=== PATIENT | female | born 1935 | race Caucasian/White ===

== ENCOUNTER 2016-05-09 11:17 | Inpatient (IN) ==
--- NOTE | 2016-05-09 11:52 | Emergency Department Note ---
Disposition Clinical Impression: Rectal bleeding Anemia Qualifiers: Anemia type: unspecified type Qualified Code(s): D64.9 - Anemia, unspecified Disposition: Admitted As Inpatient Condition: Fair Referrals: NO,PCP [Primary Care Provider] - Forms: ED Satisfaction Letter Time of Disposition: 13:38 Recheck wound or abnormal lab - General Chief Complaint: ED Recheck/Abnormal Lab/Rx Stated Complaint: Hbg 6.6 Time Seen by Provider: 05/09/16 11:26 Source: EMS Limitations: no limitations Nursing Notes Reviewed: Yes Vital Signs Reviewed: Yes - History of Present Illness HPI Narrative: 81-year-old who comes in complaining of low hemoglobin. Patient has a history of rectal bleeding. Patient was seen by the doctor at the [facility] and requested patient received 2 units of packed red cells. Patient states she is a DNR but would be evaluated for the rectal bleeding. Patient denies being on a blood thinner. Pt Subjective Complaint: abnormal lab(s) (Global 6.6) Symptoms Since Prior Visit: no new symptoms Context: called for abnormal lab result Associated symptoms: none - Related Data Allergies Allergy/AdvReac Type Severity Reaction Status Date / Time amlodipine Allergy Hives Verified 05/09/16 11:45 Constitutional: Denies: fever, chills, weakness, weight change Eyes: Denies: eye pain, eye discharge, vision change ENT ED: Denies: ear pain, throat pain, dental pain, hearing loss, epistaxis, congestion, dysphagia Cardiovascular: Denies: chest pain, palpitations, dyspnea on exertion, edema, syncope Respiratory: Denies: cough, dyspnea, wheezes, hemoptysis, stridor Gastrointestinal: Denies: abdominal pain, nausea, vomiting, diarrhea, constipation, hematemesis, melena, hematochezia Genitourinary: Denies: dysuria, frequency, hematuria, discharge Musculoskeletal: Denies: back pain, neck pain, arthralgia, myalgia Integumentary: Denies: rash, abrasion, lesions Neurological: Denies: headache, weakness, numbness, paresthesias, confusion, abnormal gait, vertigo Psychiatric: Denies: anxiety, depression, suicidal thoughts, homicidal thoughts , auditory hallucinations, visual hallucinations Endocrine: Denies: fatigue Hematological/Lymphatic: Denies: easy bleeding, easy bruising Allergic/Immunologic: Denies: facial swelling, urticaria Past Medical History - Past Medical History Medical history: Reports: arthritis, dementia, diabetes, GERD, hyperlipidemia, hypertension, peripheral artery disease Psychiatric history: Reports: depression - Social History Smoking Status: Never smoker Smokeless Tobacco Status: No Alcohol use: Reports: none Drug use: Reports: none Physical Exam - General Limitations: no limitations General appearance: alert, in no apparent distress - Head Head exam: atraumatic, normocephalic, normal inspection - Eye Eye exam: Present: normal appearance, PERRL, EOMI - ENT ENT exam: normal exam, normal oropharynx, mucous membranes moist - Neck Neck exam: Present: normal inspection, full ROM, trachea midline - Chest Chest inspection: Present: normal inspection, symmetric chest wall rise - Respiratory Respiratory exam: Present: normal lung sounds bilaterally - Cardiovascular Cardiovascular exam: Present: regular rate, normal rhythm, normal heart sounds - Abdominal Exam Abdominal exam: Present: soft, Non-Tender. Absent: tenderness, distention, guarding, rebound, rigidity - Rectal Exam Agency Trainer present during exam: Yes Rectal exam: Present: heme (+) stool - Extremities Exam Extremities exam: Present: normal inspection, full ROM. Absent: tenderness, pedal edema - Expanded Lower Extremity Exam Neurovascular/Tendon exam: Absent: motor deficit, sensory deficit, tendon deficit Gait: not tested/not observed - Back Exam Back exam: Present: normal inspection, full ROM. Absent: tenderness - Neurological Exam Neurological exam: Present: alert, oriented X3 - Psychiatric Psychiatric exam: Present: normal affect, normal mood - Skin Skin exam: Present: warm, dry, intact, normal color Course - Reevaluation(s) Reevaluation #1: The patient has rectal bleeding and a hemoglobin at the outside facility of 6.6. Hemoglobin here was 7.6 however the patient's creatinine slight elevated which indicates may be some dehydration. Time: 13:47 - Consultations Consultation #1: Discussed with Dr. Zapien, admit. Time: 13:46 Vital Signs Temperature 97.8 F 05/09/16 11:20 Pulse Rate 57 05/09/16 11:20 Respiratory Rate 05/09/16 11:20 Blood Pressure 155/76 05/09/16 11:20 O2 Sat by Pulse Oximetry 97 05/09/16 11:20 Temperature 97.8 F 05/09/16 11:34 Pulse Rate 58 05/09/16 12:52 Respiratory Rate 05/09/16 11:34 Blood Pressure 160/47 05/09/16 12:52 O2 Sat by Pulse Oximetry 96 05/09/16 12:52 Oxygen Delivery Oxygen Delivery Room Air Recheck wound or abnormal lab - Lab Data Result diagrams: 05/09/16 11:56 05/09/16 11:56 Lab Results 05/09/16 05/09/16 05/09/16 Range/Units 11:23 11:56 11:56 WBC 4.3 (4.3-11.1) K/mcL RBC 2.36 L (3.82-4.97) M/mcL Hgb 7.6 L (11.5-15.4) g/dL Hct 24.7 L (35.3-44.9) % MCV 104.7 H (83.0-100.0) fL MCH 32.2 (28.0-33.3) pg MCHC 30.8 L (31.6-35.5) g/dL RDW 15.9 H (11.5-14.5) % Plt Count 173 (140-400) K/mcL MPV 12.2 (9.4-12.4) fL Immature Gran % 4.2 H (0-4) % Seg Neutrophils % 53.3 % Lymphocytes % 28.0 % Monocytes % 10.1 % Eosinophils % 4.2 % Basophils % 0.2 % Neutrophils # 2.3 (1.6-8.9) K/mcL Lymphocytes # 1.2 (0.6-4.6) K/mcL Monocytes # 0.4 (0.0-1.3) K/mcL Eosinophils # 0.2 (0.0-0.6) K/mcL Basophils # 0.0 (0.0-0.2) K/mcL Immature Plt Fraction 11.7 H (1.1-6.1) % Sodium 142 (136-145) mEq/L Potassium 4.7 H (3.5-4.5) mEq/L Chloride 104 (98-109) mEq/L Carbon Dioxide 22 (19-29) mEq/L BUN 33 H (7-20) mg/dL Creatinine 1.73 H (0.57-1.11) mg/dL Est GFR ( Amer) 34 L (> 60) Est GFR (Non-Af Amer) 28 L (> 60) BUN/Creatinine Ratio 19 (6-26) Glucose 154 H (70-99) mg/dL POC Glucose 160 H (58-89) Calculated Osmolality 304 H (280-300) Calcium 9.7 (8.6-10.8) mg/dL Stool Occult Blood (Negative) Blood Type Antibody Screen 05/09/16 05/09/16 Range/Units 11:56 12:25 WBC (4.3-11.1) K/mcL RBC (3.82-4.97) M/mcL Hgb (11.5-15.4) g/dL Hct (35.3-44.9) % MCV (83.0-100.0) fL MCH (28.0-33.3) pg MCHC (31.6-35.5) g/dL RDW (11.5-14.5) % Plt Count (140-400) K/mcL MPV (9.4-12.4) fL Immature Gran % (0-4) % Seg Neutrophils % % Lymphocytes % % Monocytes % % Eosinophils % % Basophils % % Neutrophils # (1.6-8.9) K/mcL Lymphocytes # (0.6-4.6) K/mcL Monocytes # (0.0-1.3) K/mcL Eosinophils # (0.0-0.6) K/mcL Basophils # (0.0-0.2) K/mcL Immature Plt Fraction (1.1-6.1) % Sodium (136-145) mEq/L Potassium (3.5-4.5) mEq/L Chloride (98-109) mEq/L Carbon Dioxide (19-29) mEq/L BUN (7-20) mg/dL Creatinine (0.57-1.11) mg/dL Est GFR ( Amer) (> 60) Est GFR (Non-Af Amer) (> 60) BUN/Creatinine Ratio (6-26) Glucose (70-99) mg/dL POC Glucose (58-89) Calculated Osmolality (280-300) Calcium (8.6-10.8) mg/dL Stool Occult Blood Positive A (Negative) Blood Type A POSITIVE Antibody Screen NEGATIVE - EKG Data EKG attestation: Yes I reviewed and interpreted this EKG. EKG shows normal: sinus rhythm Rate: bradycardia Rhythm: NSR When compared to previous EKG there are: no significant changes (05/05/2014) Interpretation: no acute changes
[2016-05-09 12:05] LABS: Basophils % 0.2 %; Eosinophils # 0.2 K/mcL (0.0-0.6); Eosinophils % 4.2 %; Hematocrit 24.7 % (35.3-44.9); Hemoglobin 7.6 g/dL (11.5-15.4); Immature Granulocytes % 4.2 % (0-4); Immature Platelets 11.7 % (1.1-6.1); Lymphocytes # 1.2 K/mcL (0.6-4.6); Mean Corpuscular HGB Conc 30.8 g/dL (31.6-35.5); Mean Corpuscular Hemoglobin 32.2 pg (28.0-33.3); Mean Corpuscular Volume 104.7 fL (83.0-100.0); Mean Platelet Volume 12.2 fL (9.4-12.4); Monocytes # 0.4 K/mcL (0.0-1.3); Monocytes % 10.1 %; Neutrophils # 2.3 K/mcL (1.6-8.9); Platelet Count 173 K/mcL (140-400); Red Blood Count 2.36 M/mcL (3.82-4.97); Red Cell Distribution Width 15.9 % (11.5-14.5); Segmented Neutrophils % 53.3 %
[2016-05-09 12:16] LABS: Calcium 9.7 mg/dL (8.6-10.8)
[2016-05-09 12:17] LABS: Potassium 4.7 mEq/L (3.5-4.5)
[2016-05-09 14:14] LABS: Prothrombin Time 11.1 Seconds (9.4-12.1)
[2016-05-09 14:16] LABS: Activated Partial Thrombo Time 29.9 Seconds (26.0-36.0)
[2016-05-09] MEDS ORDERED: Naloxone 0.4 MG/ML INJ IVP PRN (16:02)
[2016-05-09] MEDS ORDERED: Acetaminophen 325 MG TABLET PO PRN (16:02)
[2016-05-09] MEDS ORDERED: Ondansetron 4 MG/2 ML VIAL IVP PRN (16:02)
[2016-05-09] MEDS ORDERED: Nitroglycerin 0.4 MG TAB.SUBL SL PRN (16:07)
[2016-05-09] MEDS ORDERED: D5% in Water 1,000 ML IV PRN (16:19)
[2016-05-09] MEDS ORDERED: Dextrose Gel 15 GM PO PRN ×2 (16:19)
[2016-05-09] MEDS ORDERED: *HR* Dextrose 50 % in Water (Syg) 50 ML SYRINGE IVP PRN (16:19)
[2016-05-09] MEDS ORDERED: 0.9 % Sodium Chloride 250 ML ONE (16:40)
--- NOTE | 2016-05-09 16:44 | Electrocardiograph Report ---
[facility] Test Date: 2016-05-09 Pat Name: ADALID Sepulveda Department: 105 Room: 2A13 Gender: F Linen Controller: : [id number] Requested By: Huey Abraham Order Number: [id number] Reading MD: Radha Oro Measurements Intervals Humphrey Rate: 57 P: 0 CA: 203 QRS: -5 QRSD: 98 T: 119 QT: 451 QTc: 446 Interpretive Statements SINUS BRADYCARDIA ST DEVIATION AND MODERATE T-WAVE ABNORMALITY, CONSIDER LATERAL ISCHEMIA Electronically Signed On 05-09-16 16:42:51 EST by Radha Oro
[2016-05-09 16:48] LABS: Calcium 9.1 mg/dL (8.6-10.8); Potassium 4.8 mEq/L (3.5-4.5)
--- NOTE | 2016-05-09 16:53 | Internal Med History&Physical ---
<Hyun Parmar - Last Filed: 05/09/16 16:57> Date of Encounter: 05/09/16 Time of Encounter: 15:30 Assessment and Plan (1) Anemia Current visit: Yes Status: Acute 1 patient's had drop in her hemoglobin 7.6 today-//-9.4. Positive occult stool, not when the blood thinners-testable GI bleed in past had a colonoscopy 2 years ago at outlying facility. Patient's type and screen for 2 units of PRBC -A she is a DNR CC however family and patient request further GI workup 2 consult GI-spoke with -via telephone who will see patient tomorrow will make patient nothing by mouth for EGD in a.m. 3 we will monitor for signs and symptoms of bleeding Qualifiers: Anemia type: unspecified type Qualified Code(s): D64.9 - Anemia, unspecified (2) Atrial fibrillation Current visit: Yes Status: Acute 1 present patient is sinus bradycardia with heart rate 58-55. We will continue with metoprolol and Cardizem will hold for heart rate less than 60 2 we will hold aspirin for now patient to undergo colonoscopy and EGD-we will resume once results obtained Qualifiers: Atrial fibrillation type: paroxysmal Qualified Code(s): I48.0 - Paroxysmal atrial fibrillation (3) Hypertension Current visit: Yes Status: Acute 1 patient's blood pressure was 160 upon admission- we will continue with Cardizem and metoprolol with parameters and reduce clonidine to 0.1 mg and resume after EGD. Administer hydralazine 5 mg IV push as needed for systolic blood pressure greater than 170 Qualifiers: Hypertension type: essential hypertension Qualified Code(s): I10 - Essential (primary) hypertension (4) Diabetes mellitus Current visit: Yes Status: Chronic 1 we will check blood sugars before meals at bedtime with sliding scale insulin goals to maintain postprandial less than 180 Qualifiers: Diabetes mellitus type: type 2 Diabetes mellitus complication status: without complication Diabetes mellitus prison insulin use: without long term care social worker use Qualified Code(s): E11.9 - Type 2 diabetes mellitus without complications (5) DVT prophylaxis Current visit: Yes Status: Acute 1. Due to drop in hemoglobin will use SCDs Internal Medicine - H&P: HPI Chief complaint: low hgb Admitted From: Long-term Nursing Facility Plans for Post Hospital Care: [facility] History of present illness: Ms. Sepulveda is a 81 year old female with a past medical history of atrial fibrillation hypertension diabetes type 2 dementia. Information obtained from medical records staff family members due to patient's history of dementia. According to emergency room records the patient resides at an [facility] and had lab drawn today which revealed hemoglobin was 6.6. Patient did not have any active bleeding at the facility however, she has had an unspecified history of gastritis and possible gastrointestinal hemorrhage in the past with a colonoscopy approximately 2 years ago. She is not on any blood thinners however does take aspirin. Upon arrival to the emergency department her hemoglobin was rechecked at that time it was 7.6. Previous hemoglobin dated was 9.4. The patient had a positive occult stool in the emergency department. She also had MARCE with creatinine 1.73. She was bradycardic on EKG blood pressures 160 systolic afebrile . According to ER records the patient is a DNR CC however her family as well as the patient have agreed to undergo colonoscopy She was typed and crossed for 2 units of PRBCs and admitted for further workup and evaluation. Presently the patient denies any pain or discomfort she is oriented to self only. She does follow simple commands however is unable to recall any history. At present time she is hemodynamically stable. I reviewed the case with Dr Zapien who agree with plan Past Med Surg Social Fam HX - Past Medical History Medical history: arthritis, dementia, diabetes, GERD, hyperlipidemia, hypertension, peripheral artery disease Psychiatric history: depression - Social History Smoking Status: Never smoker Smokeless Tobacco Status: No Alcohol use: none Drug use: none - Family History Mother Hx Family Cardiac Disorders: Yes Internal Medicine - H&P: Meds Acetaminophen [Tylenol] 500 - 1,000 mg PO BID 05/09/16 [History] Aspirin 81 mg PO DAILY 05/09/16 [History] Atorvastatin [Lipitor] 10 mg PO HS 05/09/16 [History] Carbamide Peroxide [Murine Ear Drops] 1 drop BOTH EYES BID 05/09/16 [History] Cholecalciferol (Vitamin D3) [Vitamin D] 1,000 unit PO DAILY 05/09/16 [History] CloNIDine HCl [Clonidine HCl] 0.2 mg PO BID 05/09/16 [History] Diltiazem HCl [Diltiazem ER] 180 mg PO BID 05/09/16 [History] Gabapentin [Neurontin] 100 mg PO BID 05/09/16 [History] Melatonin 6 mg PO HS PRN 05/09/16 [History] Metformin [Glucophage] 500 mg PO BIDWM 05/09/16 [History] Metoprolol [Lopressor] 25 mg PO BID 05/09/16 [History] Nitroglycerin [Nitrostat] 0.4 mg SL Q5M PRN 05/09/16 [History] Omeprazole [PriLOSEC] 20 mg PO DAILY 05/09/16 [History] Ondansetron [Zofran] 8 mg PO Q8HR 05/09/16 [History] Polyethylene Glycol 3350 [MiraLAX] 17 gm PO DAILY PRN 05/09/16 [History] Sertraline [Zoloft] 100 mg PO DAILY 05/09/16 [History] Allergies amlodipine Allergy (Verified 05/09/16 14:37) Hives hives/Racing pulse ROS unobtainable: other (Dementia) All Systems PM: A 10-system review of systems was performed and is negative for pertinent findings except as documented above in the HPI. - Constitutional Vitals: Temp Pulse Resp BP Pulse Ox 97.8 F 56 20 140/63 93 L 05/09/16 11:34 05/09/16 13:46 05/09/16 14:49 05/09/16 14:49 05/09/16 13:46 General appearance: Present: cooperative, A&O X 1, pleasant - Head Head exam: Present: atraumatic, normocephalic - Eye Eye exam: Present: PERRL, conjuntiva pink, sclera anicteric Pupils: Present: PERRL - Neck Neck exam general surgery: Present: supple, trachea midline. Absent: lymphadenopathy - Respiratory Respiratory exam: Present: CTAB. Absent: accessory muscle use, rales, rhonchi, wheezes - Cardiovascular Cardiovascular exam: Present: RRR, +S1, +S2. Absent: diastolic murmur, gallop, rubs, systolic murmur - GI/Abdominal GI/Abdominal exam: Present: normal bowel sounds, soft, no peritoneal signs. Absent: distended, tenderness - Extremities Exam Extremities exam: Present: warm, radial pulses palpable and symetrical. Absent : calf tenderness, cyanotic, pedal edema - Neurological Exam Neurological exam: Present: CN II-XII intact, no focal deficits. Absent: pronater drift, facial droop, speech deficit Additional comments: Oriented to name only - Skin Skin exam: Present: dry, intact, pallor Internal Med - H&P Results - Labs CBC & Chem 7: 05/09/16 11:56 05/09/16 16:26 - EKG Data Rate: bradycardia - EKG Data Prior EKG available for review: yes EKG comments: 05/09/16 16:[address] Zapien <Ale Guzman - Last Filed: 05/09/16 17:59> Date of Encounter: 05/09/16 Internal Medicine - H&P: HPI History of present illness: Ms. Sepulveda is a 81 year old female All Systems PM: A 10-system review of systems was performed and is negative for pertinent findings except as documented above in the HPI. - Constitutional Vitals: Temp Pulse Resp BP Pulse Ox 98.4 F 60 16 184/74 93 L 05/09/16 16:57 05/09/16 16:57 05/09/16 16:57 05/09/16 16:57 05/09/16 16:57 Internal Med - H&P Results - Labs CBC & Chem 7: 05/09/16 11:56 05/09/16 16:26 Labs: BMP 05/09/16 16:26 Sodium 140 Potassium 4.8 H Chloride 106 Carbon Dioxide 22 BUN 32 H Creatinine 1.60 H Glucose 152 H Calcium 9.1 - Attending Attestation I examined this patient and reviewed laboratory, imaging and all diagnostic data. My medical decision-making was reviewed with ÓSCAR Purvis. I agree with the documented findings, disposition and treatment plan as described above. Acute anemia with concern for a possible GI bleed in this 81 year old female. Admit to inpatient due to medical necessity and the expectation about 2 midnight stay.
[2016-05-09] MEDS: Pantoprazole 40 MG VIAL IVP SCH (18:10)
[2016-05-09] MEDS: Insulin LISPRO 300 UNITS/3 ML VIAL SQ SCH ×2 (18:10→20:02)
[2016-05-09] MEDS: Gabapentin 100 MG CAPSULE PO SCH (20:02)
[2016-05-09] MEDS ORDERED: 0.9 % Sodium Chloride 500 ML ONE (20:20)
[2016-05-10] MEDS ORDERED: NIFEdipine XL (24 HR) 60 MG TAB.ER.24 PO ONE (00:23)
[2016-05-10] MEDS ORDERED: 0.9 % Sodium Chloride 1,000 ML ONE (01:22)
[2016-05-10 05:08] LABS: Basophils % 0.4 %; Eosinophils # 0.1 K/mcL (0.0-0.6); Eosinophils % 1.9 %; Hematocrit 32.4 % (35.3-44.9); Immature Granulocytes % 4.1 % (0-4); Lymphocytes # 1.1 K/mcL (0.6-4.6); Lymphocytes % 18.7 %; Mean Corpuscular Hemoglobin 32.1 pg (28.0-33.3); Mean Corpuscular Volume 97.3 fL (83.0-100.0); Mean Platelet Volume 12.8 fL (9.4-12.4); Monocytes # 0.6 K/mcL (0.0-1.3); Monocytes % 10.1 %; Neutrophils # 3.7 K/mcL (1.6-8.9); Nucleated Red Blood Cells 0.4 /100 WBC (0); Platelet Count 154 K/mcL (140-400); Red Blood Count 3.33 M/mcL (3.82-4.97); Red Cell Distribution Width 16.7 % (11.5-14.5); Segmented Neutrophils % 64.8 %
[2016-05-10 05:16] LABS: Hemoglobin 10.7 g/dL (11.5-15.4)
[2016-05-10] MEDS: Insulin LISPRO 300 UNITS/3 ML VIAL SQ SCH ×3 (06:25→18:36)
[2016-05-10] MEDS ORDERED: 0.9 % Sodium Chloride 1,000 ML IVC SCH ×2 (07:45→14:00)
[2016-05-10] MEDS: Gabapentin 100 MG CAPSULE PO SCH ×2 (08:25→20:18)
[2016-05-10] MEDS: Pantoprazole 40 MG VIAL IVP SCH (08:25)
[2016-05-10] MEDS: Cholecalciferol (D-3) 1,000 UNIT TABLET PO SCH (08:25)
[2016-05-10 08:53] LABS: Calcium 9.7 mg/dL (8.6-10.8); Potassium 4.3 mEq/L (3.5-4.5)
[2016-05-10] MEDS ORDERED: cloNIDine HCl 0.1 MG TABLET PO SCH ×2 (09:00→21:00)
--- NOTE | 2016-05-10 11:11 | Gastroenterology Consult Note ---
<Marco A Larry - Last Filed: 05/10/16 11:08> Date of Encounter: 05/10/16 Time of Encounter: 10:00 - Assessment and plan (1) Anemia Current Visit: Yes Status: Acute Assessment and plan: Hgb 7.6 on admission. She has received 2 units PRBC and Hgb 10.7 this AM. Continue to monitor CBC and transfuse PRBC as needed. Plan for EGD today to r/o esophagitis, gastritis, duodenitis, PUD, MW tear, or AVM. Possible colonoscopy tomorrow, pending EGD results. I attempted to contact the patient's son, Neil Sepulveda at [phone], to obtain consent for EGD today, and was unsuccessful 4 different times. Qualifiers: Anemia type: unspecified type Qualified Code(s): D64.9 - Anemia, unspecified (2) Atrial fibrillation Current Visit: Yes Status: Acute Qualifiers: Atrial fibrillation type: paroxysmal Qualified Code(s): I48.0 - Paroxysmal atrial fibrillation - Time Spent With Patient Total time spent is greater than 50% in coordination of care (as documented) at patient's floor/unit and/or counseling patient: GI History of Present Illness - Data of Consult Patient: new to practice Consult date: 05/10/16 Requesting Physician: Huey Abraham MD - Consult Narrative Reason for consult: FOBT positive, anemia History of present illness: Ms. Sepulveda is a 81 year old female with PMHx of Afib, HTN, DM, dementia, HLD who presented to the ED with anemia. Labs were drawn at [facility] which revealed Hgb 6.6. On admission, Hgb 7.6 and FOBT positive. Hgb on 03/29/2015 was 9.4. She is taking ASA, but is not an anticoagulant. She has received 2 units PRBC. The patient is a DNR CC. No family at bedside during my evaluation. Procedures: Colonoscopy 07/31/2006 with 2 tubular adenoma and one hyperplastic polyp. NSAIDs: ASA Anticoagulation: None Past Med Surg Social Fam HX - Past Medical History Medical history: arthritis, dementia, diabetes, GERD, hyperlipidemia, hypertension, peripheral artery disease Psychiatric history: depression - Social History Smoking Status: Never smoker Smokeless Tobacco Status: No Alcohol use: none Drug use: none - Family History Mother Hx Family Cardiac Disorders: Yes ROS unobtainable: due to mental status - Constitutional Vitals: Temp Pulse Resp BP Pulse Ox 98.3 F 79 18 142/63 91 L 05/10/16 07:51 05/10/16 07:51 05/10/16 07:51 05/10/16 07:51 05/10/16 07:51 General appearance: Present: cooperative, A&O X 3, no acute distress, answers questions appropriately - Head Head exam: Present: atraumatic, normocephalic - Eye Eye exam: Present: normal appearance, sclera anicteric - ENT ENT exam: Present: mucous membranes dry - Neck Neck exam general surgery: Present: normal inspection, trachea midline - Respiratory Respiratory exam: Present: CTAB. Absent: rales, rhonchi, wheezes - Cardiovascular Cardiovascular exam: Present: RRR, +S1, +S2 - GI/Abdominal GI/Abdominal exam: Present: soft, no peritoneal signs. Absent: distended, firm , guarding, tenderness - Rectal Rectal exam: Present: deferred - Extremities Exam Extremities exam: Present: warm - Neurological Exam Neurological exam: Present: no focal deficits - Psychiatric Psychiatric exam: Present: normal affect, normal mood - Skin Skin exam: Present: dry, intact, normal color, warm Results - Labs CBC & Chem 7: 05/10/16 04:47 05/10/16 08:06 Labs: Last Result Calcium 9.7 mg/dL (8.6-10.8) 05/10/16 08:06 Stool Occult Blood Positive (Negative) A 05/09/16 12:25 Entire Visit Hgb 10.7 g/dL (11.5-15.4) L D 05/10/16 04:47 Hct 32.4 % (35.3-44.9) L 05/10/16 04:47 PT 11.1 Seconds (9.4-12.1) 05/09/16 14:01 - ABG ABG results: PT/INR, D-dimer PT 11.1 Seconds (9.4-12.1) 05/09/16 14:01 Consult Discharge Plan - Plan Referrals: NO,PCP [Primary Care Provider] - <Valentine Wilson - Last Filed: 05/10/16 17:50> Time of Encounter: 14:00 - Time Spent With Patient Total time spent is greater than 50% in coordination of care (as documented) at patient's floor/unit and/or counseling patient: GI History of Present Illness - Data of Consult Requesting Physician: Heuy Abraham MD - Consult Narrative History of present illness: Ms. Sepulveda is a 81 year old female - Constitutional Vitals: Temp Pulse Resp BP Pulse Ox 98.9 F 75 16 171/79 95 05/10/16 16:27 05/10/16 16:27 05/10/16 16:27 05/10/16 16:27 05/10/16 16:27 Results - Labs CBC & Chem 7: 05/10/16 04:47 05/10/16 08:06 Labs: Last Result Calcium 9.7 mg/dL (8.6-10.8) 05/10/16 08:06 Stool Occult Blood Positive (Negative) A 05/09/16 12:25 Entire Visit Hgb 10.7 g/dL (11.5-15.4) L D 05/10/16 04:47 Hct 32.4 % (35.3-44.9) L 05/10/16 04:47 PT 11.1 Seconds (9.4-12.1) 05/09/16 14:01 - ABG ABG results: PT/INR, D-dimer PT 11.1 Seconds (9.4-12.1) 05/09/16 14:01 - Attending Attestation I examined this patient and my medical decision-making was reviewed with the EXHIBITS CURATOR/PA/Advanced Practice Nurse/Resident Physician. I agree with the documented findings, disposition and treatment plan as described except to the extent set forth below.
[2016-05-10] MEDS ORDERED: *HR* FentaNYL (PF) 100 MCG/2 ML VIAL ONE (14:19)
[2016-05-10] MEDS ORDERED: *HR* Midazolam HCl 5 MG/5 ML VIAL IVP ONE (14:20)
[2016-05-10] MEDS ORDERED: Simethicone 40 MG/0.6 ML MLS IR ONE (14:31)
[2016-05-10] MEDS ORDERED: Tetracaine/Benzocaine/Butamben 200MG/SPRAY (100SPY/BOT) MM ONE (14:31)
--- NOTE | 2016-05-10 14:31 | Pre-Sedation Evaluation ---
Pre-sedation evaluation - Pre-sedation checklist Date of procedure: 05/10/16 Procedure: EGD Recent Vitals: Last Vital Signs Temp 99.3 F 05/10/16 13:43 Pulse 80 05/10/16 13:43 Resp 18 05/10/16 13:43 BP 173/68 05/10/16 13:43 Pulse Ox 98 05/10/16 13:43 H&P (including ROS) documented in medical record: Yes Previous reaction to sedatives/anesthetics: Unknown Dietary Status: No solid food in preceding 4 hrs and no liquid in preceding 2 hrs Dentition: No loose teeth or bridges ASA Classification *see protocol: CLASS III-Severe systemic disease Plan of Care: Pt appropriate candidate for procedure/moderate/conscious sedation , Risks/benefits of procedure/sedation discussed w/ patient/family
[2016-05-10] MEDS: *HR* FentaNYL (PF) 100 MCG/2 ML VIAL IVP PRN ×2 (14:36→14:39)
[2016-05-10] MEDS: *HR* Midazolam HCl 5 MG/5 ML VIAL IVP PRN ×2 (14:37→14:39)
--- NOTE | 2016-05-10 15:38 | Internal Med Progress Note ---
Date of Encounter: 05/10/16 Time of Encounter: 11:35 - Assessment and plan (1) MARCE (acute kidney injury) Current Visit: Yes Status: Acute Assessment and plan: Pre-renal Improving with IVF hydration Will hold IVF after EGD when patient starts to take po Monitor chem Obtain renal USS Avoid nephrotoxins (2) Anemia Current Visit: Yes Status: Acute Assessment and plan: Possibly acute on chronic GI bloosd loss s/p 2 units PRBC Hemodynamically stable Rpt Hb 10 For EGD today Per GI team, patient's son wants supportive care after this, and no colonoscopy Rpt CBC a.m Qualifiers: Anemia type: unspecified type Qualified Code(s): D64.9 - Anemia, unspecified (3) Atrial fibrillation Current Visit: Yes Status: Chronic Assessment and plan: Rate is controlled Not on AC On ASA only, which has been held due to GI bleed Continue home meds Qualifiers: Atrial fibrillation type: paroxysmal Qualified Code(s): I48.0 - Paroxysmal atrial fibrillation (4) DVT prophylaxis Current Visit: Yes Status: Acute Assessment and plan: SCDs (5) Hypertension Current Visit: Yes Status: Chronic Assessment and plan: Resume home meds Qualifiers: Hypertension type: essential hypertension Qualified Code(s): I10 - Essential (primary) hypertension (6) Rectal bleeding Current Visit: Yes Status: Chronic (7) Diabetes mellitus Current Visit: Yes Status: Chronic Assessment and plan: supplemental scale insulin only for now FS ACHS Diabetic diet Qualifiers: Diabetes mellitus type: type 2 Diabetes mellitus complication status: without complication Diabetes mellitus superintendent terminal insulin use: without superintendent terminal use Qualified Code(s): E11.9 - Type 2 diabetes mellitus without complications - Subjective Interval history: 81 Y/O F with Dementia, resident of SNF being managed for acute vs chronic blood loss anemia and MARCE She is s/p 2 units PRBC There is no obvious torrential bleed from anywhere She is seen at bedside in no form of distress, she denies any new complains Other significant PMH includes HTN, Afib, DM2 - Constitutional Vitals: Temp Pulse Resp BP Pulse Ox 99.3 F 73 16 184/79 93 L 05/10/16 13:43 05/10/16 14:44 05/10/16 14:44 05/10/16 14:44 05/10/16 14:44 General appearance: Present: cooperative, A&O X 1, pleasant, no acute distress - Head Head exam: Present: atraumatic, normocephalic - Eye Eye exam: Present: PERRL, conjuntiva pink, sclera anicteric Pupils: Present: PERRL - ENT ENT exam: Present: mucous membranes dry - Neck Neck exam general surgery: Present: normal inspection - Respiratory Respiratory exam: Present: CTAB - Cardiovascular Cardiovascular exam: Present: irregular rhythm, +S1, +S2 - GI/Abdominal GI/Abdominal exam: Present: normal bowel sounds, soft, no peritoneal signs. Absent: distended, tenderness - Extremities Exam Extremities exam: Present: warm, radial pulses palpable and symetrical. Absent : calf tenderness, cyanotic, pedal edema Additional comments: Patient's right lower extremity shorter than left, no tenderness or evidence of pain during mpassive movement of hip and knee joints - Neurological Exam Neurological exam: Present: alert, no focal deficits. Absent: pronater drift, facial droop, speech deficit - Psychiatric Psychiatric exam: Present: flat affect - Skin Skin exam: Present: dry Internal Medicine: Result - Labs CBC & Chem 7: 05/10/16 04:47 05/10/16 08:06 Labs: Short CBC 05/10/16 Range/Units 04:47 WBC 5.7 (4.3-11.1) K/mcL Hgb 10.7 L D (11.5-15.4) g/dL Hct 32.4 L (35.3-44.9) % Plt Count 154 (140-400) K/mcL Neutrophils # 3.7 (1.6-8.9) K/mcL BMP 05/09/16 05/10/16 16:26 08:06 Sodium 140 140 Potassium 4.8 H 4.3 Chloride 106 105 Carbon Dioxide 22 24 BUN 32 H 28 H Creatinine 1.60 H 1.58 H Glucose 152 H 111 H Calcium 9.1 9.7 - ABG Interpretation ABG results: PT/INR, D-dimer PT 11.1 Seconds (9.4-12.1) 05/09/16 14:01 Consult Discharge Plan - Plan Referrals: NO,PCP [Primary Care Provider] -
[2016-05-10] MEDS ORDERED: cloNIDine HCl 0.1 MG TABLET PO ONE (15:46)
[2016-05-10] MEDS: cloNIDine HCl 0.1 MG TABLET PO SCH (20:18)
[2016-05-11] MEDS: Insulin LISPRO 300 UNITS/3 ML VIAL SQ SCH ×2 (00:52→06:16)
[2016-05-11 06:08] LABS: Basophils % 0.3 %; Eosinophils # 0.1 K/mcL (0.0-0.6); Eosinophils % 2.9 %; Hematocrit 29.2 % (35.3-44.9); Hemoglobin 9.4 g/dL (11.5-15.4); Immature Granulocytes % 2.1 % (0-4); Lymphocytes # 0.9 K/mcL (0.6-4.6); Lymphocytes % 23.4 %; Mean Corpuscular HGB Conc 32.2 g/dL (31.6-35.5); Mean Corpuscular Hemoglobin 31.4 pg (28.0-33.3); Mean Corpuscular Volume 97.7 fL (83.0-100.0); Mean Platelet Volume 12.6 fL (9.4-12.4); Monocytes # 0.6 K/mcL (0.0-1.3); Monocytes % 15.2 %; Neutrophils # 2.1 K/mcL (1.6-8.9); Nucleated Red Blood Cells 0.5 /100 WBC (0); Platelet Count 146 K/mcL (140-400); Red Blood Count 2.99 M/mcL (3.82-4.97); Red Cell Distribution Width 16.4 % (11.5-14.5); Segmented Neutrophils % 56.1 %
[2016-05-11 06:16] LABS: Calcium 9.4 mg/dL (8.6-10.8); Potassium 4.5 mEq/L (3.5-4.5)
--- NOTE | 2016-05-11 07:44 | Physician Discharge Referral ---
ExtendedCare Referral Info Transfer To: [facility] Provider in Charge after Transfer: PCP Institutional Level of Care: Skilled - Diagnosis (1) MARCE (acute kidney injury) Status: Ruled-out (2) Anemia Priority: Primary Status: Resolved (3) Atrial fibrillation Priority: Secondary Status: Chronic (4) DVT prophylaxis Priority: Primary Status: Resolved (5) Hypertension Priority: Secondary Status: Chronic (6) Rectal bleeding Priority: Secondary Status: Chronic (7) Diabetes mellitus Priority: Secondary Status: Chronic Prognosis: Fair Aware of Diagnosis: Family Aware of Prognosis: Family - Transfer Medications Home Medications: Acetaminophen [Tylenol] 500 - 1,000 mg PO BID 05/09/16 [History] Atorvastatin [Lipitor] 10 mg PO HS 05/09/16 [History] Carbamide Peroxide [Murine Ear Drops] 1 drop BOTH EYES BID 05/09/16 [History] Cholecalciferol (Vitamin D3) [Vitamin D3] 1,000 unit PO DAILY 05/09/16 [History] CloNIDine HCl [Clonidine HCl] 0.2 mg PO BID 05/09/16 [History] Diltiazem HCl [Diltiazem ER] 180 mg PO BID 05/09/16 [History] Gabapentin [Neurontin] 100 mg PO BID 05/09/16 [History] Melatonin 6 mg PO HS PRN 05/09/16 [History] Metformin [Glucophage] 500 mg PO BIDWM 05/09/16 [History] Metoprolol [Lopressor] 25 mg PO BID 05/09/16 [History] Nitroglycerin [Nitrostat] 0.4 mg SL Q5M PRN 05/09/16 [History] Omeprazole [PriLOSEC] 20 mg PO DAILY 05/09/16 [History] Ondansetron [Zofran] 8 mg PO Q8HR 05/09/16 [History] Polyethylene Glycol 3350 [MiraLAX] 17 gm PO DAILY PRN 05/09/16 [History] Sertraline [Zoloft] 100 mg PO DAILY 05/09/16 [History] Allergies/Adverse Reactions: Allergies amlodipine Allergy (Verified 05/09/16 14:37) Hives hives/Racing pulse - Respiratory Orders Oxygen / L per min (PRN to achieve saturation at least 92%) Smoking Cessation: Smoking cessation has been advised. For more information, call the [place] Tobacco Quit Line at 1-066-ZMCM-NOW. - Advance Directives Living Will: Yes Power of Salesperson Floor Coverings: Yes Code Status: DNR-Comfort Care - Mobility Orders Ambulate (As tolerated) - Rehabiliation Orders Rehab Potential: Fair - Diet Orders Renal, Cardiac CERTIFICATION: I certify that the transfer of the above named patient to an Extended Care Facility is necessary for the continuing treatment of the diagnosis listed. The above information is true and accurate reflection of patient's current condition. Confidential - Redisclosure prohibited without a patient's written consent.
--- NOTE | 2016-05-11 07:52 | Discharge Summary ---
Date of Encounter: 05/11/16 Time of Encounter: 07:51 - Discharge Diagnosis (1) MARCE (acute kidney injury) Priority: Secondary Status: Ruled-out Comments: Renal USS shows evidence of CKD. Renal function is stable (2) Anemia Priority: Primary Status: Resolved Comments: s/p 2 units transfusion EGD showed gastritis without evidence of bleeding As per GI attending, there is no further need for colonoscopy, this is in agreement with patient's son, her POA HB is stable and at baseline Qualifiers: Anemia type: unspecified type Qualified Code(s): D64.9 - Anemia, unspecified (3) Atrial fibrillation Priority: Secondary Status: Chronic Comments: Rate controlled, discontinue ASA due to GI bleed, not on any other anticoagulation Qualifiers: Atrial fibrillation type: paroxysmal Qualified Code(s): I48.0 - Paroxysmal atrial fibrillation (4) DVT prophylaxis Priority: Secondary Status: Resolved (5) Hypertension Priority: Secondary Status: Chronic Qualifiers: Hypertension type: essential hypertension Qualified Code(s): I10 - Essential (primary) hypertension (6) Rectal bleeding Priority: Secondary Status: Chronic (7) Diabetes mellitus Priority: Secondary Status: Chronic Qualifiers: Diabetes mellitus type: type 2 Diabetes mellitus complication status: without complication Diabetes mellitus termite helper insulin use: without termite helper use Qualified Code(s): E11.9 - Type 2 diabetes mellitus without complications - Discharge Medications Home Medications: Acetaminophen [Tylenol] 500 - 1,000 mg PO BID 05/09/16 [History] Atorvastatin [Lipitor] 10 mg PO HS 05/09/16 [History] Carbamide Peroxide [Murine Ear Drops] 1 drop BOTH EYES BID 05/09/16 [History] Cholecalciferol (Vitamin D3) [Vitamin D3] 1,000 unit PO DAILY 05/09/16 [History] CloNIDine HCl [Clonidine HCl] 0.2 mg PO BID 05/09/16 [History] Diltiazem HCl [Diltiazem ER] 180 mg PO BID 05/09/16 [History] Gabapentin [Neurontin] 100 mg PO BID 05/09/16 [History] Melatonin 6 mg PO HS PRN 05/09/16 [History] Metformin [Glucophage] 500 mg PO BIDWM 05/09/16 [History] Metoprolol [Lopressor] 25 mg PO BID 05/09/16 [History] Nitroglycerin [Nitrostat] 0.4 mg SL Q5M PRN 05/09/16 [History] Omeprazole [PriLOSEC] 20 mg PO DAILY 05/09/16 [History] Ondansetron [Zofran] 8 mg PO Q8HR 05/09/16 [History] Polyethylene Glycol 3350 [MiraLAX] 17 gm PO DAILY PRN 05/09/16 [History] Sertraline [Zoloft] 100 mg PO DAILY 05/09/16 [History] Allergies/Adverse Reactions: Allergies amlodipine Allergy (Verified 05/09/16 14:37) Hives hives/Racing pulse Procedures/tests Complete & Pending: Procedures Performed prior 72 hours Category Date Time Status Retroperitoneal Ultrasound - Complete [US Exams 05/10/16 19:00 Completed retroperitoneal comp] [US] Routine Date of admission: 05/09/16 16:02 Primary care physician: PCP TRINI Consults: 05/09/16 16:05 Consult to Gastroenterology [CONS] Routine Consulting Provider: Gastroenterology Kamille Reason for Consult: positive occult stool, Hgb drop- 7.6 Time Notified: 15:45 Call Completed: Yes Discharging clinician: Huey Abraham Anticipated date of discharge: 05/11/16 - Patient Status Disposition: Transfer SNF Condition: Fair Overall status at discharge: patient is back to baseline - Discharge Instructions Follow Up With: TRINI,PCP [Primary Care Provider] - (Patient from [facility] and will follow up withthe pcp there) - Diet and Activity Activity: resume usual activities as tolerated Diet: advance to your usual diet Interval History: See below Hospital course: Ms. Sepulveda is a 81 year old female admitted for management og anemia possibly secondary to GI Bleed She has received 2 units RBCS, Hb is stable at baseline GI work up with EGD revealed no active bleeding, no further work up per POA and GI Patient is stable to return to SNF Other chronic medical conditions remain stable - Time Spent with Patient Total time spent providing and/or coordinating discharge services: Less than 30 minutes - Constitutional Vitals: Temp Pulse Resp BP Pulse Ox 98.3 F 56 18 148/70 98 05/11/16 03:49 05/11/16 03:49 05/11/16 03:49 05/11/16 03:49 05/11/16 03:49 General appearance: Present: cooperative, A&O X 1, pleasant, no acute distress - Head Head exam: Present: atraumatic, normocephalic - Eye Eye exam: Present: PERRL, conjuntiva pink, sclera anicteric Pupils: Present: PERRL - Neck Neck exam general surgery: Present: supple, trachea midline. Absent: lymphadenopathy - Respiratory Respiratory exam: Present: CTAB. Absent: accessory muscle use, rales, rhonchi, wheezes - Cardiovascular Cardiovascular exam: Present: irregular rhythm, +S1, +S2. Absent: diastolic murmur, gallop, rubs, systolic murmur - GI/Abdominal GI/Abdominal exam: Present: normal bowel sounds, soft, no peritoneal signs. Absent: distended, tenderness - Extremities Exam Extremities exam: Present: warm, radial pulses palpable and symetrical. Absent : calf tenderness, cyanotic, pedal edema - Neurological Exam Neurological exam: Present: alert, CN II-XII intact, no focal deficits. Absent : pronater drift, facial droop, speech deficit - Skin Skin exam: Present: dry
[2016-05-11 08:03] VITALS: BP 174/81
[2016-05-11] MEDS: Gabapentin 100 MG CAPSULE PO SCH (09:13)
[2016-05-11] MEDS: cloNIDine HCl 0.1 MG TABLET PO SCH (09:13)
[2016-05-11] MEDS: Pantoprazole 40 MG VIAL IVP SCH (09:13)
[2016-05-11] MEDS: Cholecalciferol (D-3) 1,000 UNIT TABLET PO SCH (09:13)
[2016-05-11] MEDS ORDERED: Insulin LISPRO 300 UNITS/3 ML VIAL SQ SCH ×2 (11:30→21:00)
== END 2016-05-11 11:29 | DRG 392 ==
LOC: EMEROO 11:17 → 2ANU 11:17
PROVIDERS: ADMIT Internal Medicine; ATTEND Internal Medicine
PROC: ENDOEBX (2016-05-10 13:30)